=== PATIENT | male | born 1985 | race Caucasian/White ===

== ENCOUNTER 2023-04-30 15:00 | Outpatient (CLI) | payer OTHER, SELFPAY ==
--- NOTE | ~2023-04-30 | US_ITS ---
EXAMINATION: US scrotum doppler DATE: 04/30/2023 15:26 INDICATION: Right-sided epididymitis. TECHNIQUE: Grayscale and Doppler ultrasound images of the testes were obtained. COMPARISON: None. FINDINGS: The right testis measures 5.4 x 2.5 x 3.6 cm. The left testis measures 4.9 x 2.1 x 3.6 cm. There is normal vascular flow to both testes. There is a 10 mm hypoechoic mass in the tail of the rig ht epididymis. The right epididymis demonstrates normal vascular flow. The left epididymis demonstrat es a 3 mm cyst. There is a small left hydrocele. IMPRESSION: 1. 10 mm hypoechoic mass in the tail of the right epididymis. The differential diagnosis includes spe rm granuloma and less likely adenomatoid tumor. 2. Small left hydrocele. Reviewed, dictated and finalized at location E. IMPRESSION: 1. 10 mm hypoechoic mass in the tail of the right epididymis. The differential diagnosis includes sperm granuloma and less likely adenomatoid tumor. 2. Small left hydrocele.
== END 2023-04-30 15:01 ==
LOC: GOSHIMG 15:02
PROVIDERS: PCP Nurse Practitioner Adult Health; Visit Provider Nurse Practitioner Adult Health
DX: N45.1 Epididymitis (principal); N43.3 Hydrocele, unspecified
CPT/HCPCS: 76870; 93976

== ENCOUNTER 2023-05-29 12:56 | Outpatient (CLI) | payer OTHER, SELFPAY ==
--- NOTE | ~2023-05-29 | US_ITS ---
EXAMINATION: US scrotum doppler DATE: 05/29/2023 13:28 INDICATION: Epididymitis . TECHNIQUE: Grayscale and Doppler ultrasound images of the testes were obtained. COMPARISON: 04/30/2023. FINDINGS: The right testis measures 5.0 x 2.8 x 3.2 cm. The left testis measures 4.4 x 2.9 x 3.5 cm. No testicular mass. There is normal vascular flow to both testes. The right epididymis is normal with normal vascular flow. The left epididymis contains a 3 mm cyst and displays normal vascular flow. No varicoceles. Trace right and small left hydroceles. IMPRESSION: Small bilateral hydroceles. Otherwise normal scrotal ultrasound findings. The previously described ri ght epididymal tail mass is no longer identified. Reviewed, dictated and finalized at location K. IMPRESSION: Small bilateral hydroceles. Otherwise normal scrotal ultrasound findings. The p reviously described right epididymal tail mass is no longer identified.
== END 2023-05-29 12:57 ==
PROVIDERS: PCP Nurse Practitioner Adult Health; Visit Provider Nurse Practitioner Adult Health
DX: N45.1 Epididymitis (principal); N43.2 Other hydrocele
CPT/HCPCS: 76870; 93976

== ENCOUNTER 2023-12-11 09:26 | Outpatient (CLI) | payer OTHER, SELFPAY ==
[2023-12-11 19:45] LABS: Basophils Percent Auto 0.6 % (0.2-1.2); Eosinophils Absolute Auto 0.1 K/mm3 (0-0.3); Eosinophils Percent Auto 1.4 % (0-4.4); Hemoglobin 15.5 g/dL (14.0-18.0); Immature Granulocyte Absolute 0.01 K/mm3 (0.00-0.031); Immature Granulocyte Percent A 0.2 % (0-0.5); Lymphocytes Absolute Auto 1.61 K/mm3 (0.9-3.2); Lymphocytes Percent Auto 24.9 % (18.3-44.2); Mean Corpuscular Hemoglobin 31.8 pg (26-34); Mean Corpuscular Volume 96.3 fl (80-100); Mean Platelet Volume 11.1 fl (7.4-10.4); Monocytes Absolute Auto 0.6 K/mm3 (0.1-0.6); Neutrophils Absolute Auto 4.1 K/mm3 (1.3-6.7); Neutrophils Percent Auto 63.9 % (45.5-73.1); Platelet Count Result 189 k/mm3 (150-375); Red Blood Count 4.88 M/mm3 (4.6-6.20); Red Cell Distribution Width 12.9 % (11.5-14.5); White Blood Count 6.5 K/mm3 (4.5-10.0)
[2023-12-11 20:36] LABS: Alanine Aminotransferase 23 U/L (6-50); Albumin Level 4.5 g/dL (3.5-5.1); Alkaline Phosphatase 61 U/L (38-126); Anion Gap 3 mmol/L (8-16); Aspartate Amino Transferase 31 U/L (17-59); Bilirubin,Total 1.1 mg/dL (0.2-1.3); Blood Urea Nitrogen 11 mg/dL (9-20); Calcium 9.6 mg/dL (8.4-10.2); Carbon Dioxide 31 mmol/L (22-30); Chloride 105 mmol/L (98-107); Cholesterol 194 mg/dL (0-200); Estimated Glomerular Filt Rate > 60; Glucose 100 mg/dL (65-110); HDL Direct 37 mg/dL; Potassium 4.3 mmol/L (3.4-5.0); Sodium 139 mmol/L (137-145); Triglycerides 120 mg/dL (<150)
[2023-12-11 20:47] LABS: LDL Cholesterol Direct 121 mg/dL
== END 2023-12-11 09:27 | disposition home or self-care (01) ==
LOC: ANHGOSHLAB 09:28
PROVIDERS: PCP Nurse Practitioner Adult Health; Visit Provider Nurse Practitioner
DX: Z13.29 Encounter for screening for other suspected endocrine disorder (principal); Z13.220 Encounter for screening for lipoid disorders
CPT/HCPCS: 36415; 80053; 80061; 85025

== ENCOUNTER 2025-03-06 09:19 | Outpatient (CLI) | payer OTHER, SELFPAY ==
--- OUTSIDE RECORDS SUMMARY | 2025-03-06 09:45 | XMS_ITS | Continuity of Care Document ---
Author Name [facility] Organization [facility] Care Team Providers Care Environmental Lead Name Role Phone [facility] Unavailable Unavailable Problems Combined list of problems from Department of Defense and Veterans Affairs facilities. It does not include entries that were removed or entered in error. Problem Status Onset Date Problem Type Date of Resolution Comme nts Source visit for: follow-up exam Inactive Condition DoD PARONYCHIA OF THE FINGER Inactive Condition DoD PARONYCHIA RIGHT MIDDLE FINGER Inactive Condition DoD visit for: services physical Active Condition DoD Encounters Combined list of: 1) Encounters from Department of Veterans Affairs facilities going backup to the last 18 months, not all VA inpatient encounters are included; 2) Encounters from the Department of [facility] facilities going backup to 280 months. Location Location Details Encounter Type Encounter Number Reason For Visit Attending Provider ADM Date DC Date Status Disposition Source [facility] [place] [address]([facility]) OUTPATIENT [id number] doc CRISTAL HELLER 03/09 [facility] [place] [address]([facility]) [facility] OUTPATIENT [id number] 04/28 Released w/o Limitations [facility] OUTPATIENT [id number] 04/29 Released w/o Limitations [facility] OUTPATIENT [id number] 04/30 Released w/o Limitations [facility] OUTPATIENT [id number] 05/04 Released w/o Limitations Theater [facility]ilit y [facility] Outpatient Encounter [id number] 4 LINDSEY NASSAR 12/30 [facility] Procedures Combined list of: 1) Procedures from Department of Veterans Affairs facilities going back up to thelast 18 months, not all VA non-surgical procedures are included; 2) All procedures from the Department of Defense facilities. Procedure Procedure Type Code Date Perfomer Comments Sourc e Repair And Refitting Gla es (Not For Aphakia) Repair And Refitting Glasses (Not For Aphakia) 24534 03/09/[address] [facility] Determination Of Refractive State Determination Of Refractive State 04690 03/09/[address] [facility] Spectacles Services Fitting Monofocals (Not For Aphakia) Spectacles Services Fitting Monofocals (Not For Aphakia) 75329 03/09/[address] [facility] Social History Combined list of available smoking, tobacco, and other social history from Department of Defense and Veterans Affairs facilities. Social History Type Response Date Comment [facility] e This section is an empty social history section. DoD
--- OUTSIDE RECORDS SUMMARY | 2025-03-06 09:45 | XMS_ITS | Clinical Summary ---
Author Organization [facility] Address [address] [place] [address] Phone Care Team Providers Care Graduate Advisor Name Role Phone Hector Izquierdo MD Primary Care Provi marisela Allergies No known active allergies Medications No known medications Active Problems Problem Noted Date Diagnosed Date Routine general medical exam ination at a health care facility 04/19/2018 Assessment & Plan (04/19/2018 12:38 PM CDT): patient presents for annual exam ekg noted labs pending get copy of living will to pcp encourage follow gi for scheduled colonoscopy and egd if indicated encourage annual eye exam and dental minimum 2 times year encourage balance nutrition utilizing plateFrontbackod.gov and exercise 5 days a week. BMI 26.0-26.9,adult 03/26/2018 Assessment & Plan (04/19/2018 12:38 PM CDT): BMI Follow-up includes: nutrition counseling, exercise counseling and education provided. Other fatigue 03/26/2018 Assessment & Plan (03/26/2018 9:37 AM CDT): eat three meals a day same time each day well balance using plate method found at myDifferential Dynamics.gov stay well hydrated with water and walk 5 days a week See orders Inflamed seborrheic keratosis 04/06/2017 Assessment & Plan (04/19/2018 12:37 PM CDT): Reviewed all diagnostics surgery referrals laboratory Answer all questions Wear sun screen min 30 spf Wear hats and appropriate clothing Do not stay out more than rec time for exposure Routine skin checks Multiple benign melanocytic nevi 04/06/2017 Assessment & Plan (04/19/2018 12:37 PM CDT): Reviewed all diagnostics surgery referrals laboratory Answer all questions Wear sun screen min 30 spf Wear hats and appropriate clothing Do not stay out more than rec time for exposure Routine skin checks See ordres Resolved Problems Problem Noted Date Diagnosed Date Resolved Date Benign neoplasm of skin of trunk 05/11/2017 03/26/2018 Skin neoplasm 04/06/2017 03/26/2018 Immunizations Immunization Administration Dates Next Due Influenza, Unspecified 07/27/2017 Tdap 03/26/2018 Surgical History Surgery Date Site/Laterality Comments APPENDECTOMY WISDOM TOOTH EXTRACTION Family History Medical History Relation Name Comments Heart disease Father Heart disease; pacemaker Father Other Mother Alive and well; Relation Name Status Comments Father Alive Mother Alive Social History Tobacco Use Types Packs/Day Years Used Date Smoking Tobacco: Every Day Cigarettes 1 10 Smokeless Tobacco: Never Alcohol Use Standard Drinks/Week Comments Yes 0 (1 standard drink = 0.6 oz pur e alcohol) binge drink on weekends Personal Safety Answer Date Recorded Getting School Help Needed Not on file 01/02 Sex and Gender Information Value Date Recorded Sex Assigned at Not on file 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 Gender Identity Not on file Sexual Orientation Not on file 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 Not on file No t on file Obstetrics History Last Filed Vital Signs Vital Sign Reading Time Taken Comments Blood Pressure 110/80 03/26/2018 9:11 AM CDT Pulse 93 03/26/2018 9:11 AM CDT Temperature - - Respiratory Rate - - Oxygen Saturation 97% 03/26/2018 9:11 AM CDT Inhaled Oxygen Concentration - - Weight 89.8 kg (198 lb) 03/26/2018 9:11 AM CDT Height 182.9 cm (6') 03/26/2018 9:11 AM CDT Body Mass Index 26.85 03/26/2018 9:11 AM CDT Plan of Treatment Not on file Insurance [employer] ACC[employer] CHO[employer] Care Teams Graduate Advisor Relationship Specialty Start Date End Date Hector Izquierdo MD PCP - General 03/27/16
--- OUTSIDE RECORDS SUMMARY | 2025-03-06 09:45 | XMS_ITS | Referral Summary ---
Author Organization [facility] Address [address] [place] [address] Phone Care Team Providers Care Rapid Transit Operator Name Role Phone Hector Izquierdo MD Primary [...] 2 times year encourage balance nutrition utilizing plateSenseLogixod.gov and exercise 5 days a week. BMI 26.0-26.9,adult 03/26/2018 Assessment & Plan (04/19/2018 12:38 PM CDT): BMI Follow-up includes: nutrition counseling, exercise counseling and education provided. 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
--- OUTSIDE RECORDS SUMMARY | 2025-03-06 09:45 | XMS_ITS | Clinical Summary ---
Author Organization [facility] My Pick Box Address [address] [place] [address] Care Team Providers Care Interactive Media Marketing Strategist Name Role Phone Unavailable Primary Care Provider Unavailabl e Source Comments [facility],non-owned Affiliates and Associated Physician Practices is amultiple site organization consisting of ambulatory clinics and hospital sitesin [place], [place], [place] and [place]. This disclosure is being madepursuant to the Care Everywhere program and may not contain all information available regarding this patient. Last updated 18.[facility] My Pick Box Immunizations Immunization Administration Dates Next Due INFLUENZA VACCINE, TRIV. 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 Gender Identity Not on file Sexual Orientation Not on file Plan of Treatment Health Maintenance Due Date Last Done Comments HIV SCREENING 2002 HEPATITIS C SCREENING 08/19/2005 DTAP/TDAP/TD VACCINES (1 - Tdap) 2006 HEPATITIS B VACCINE (1 of 3 - 19+ 3-dose series) 2006 COVID-19 VACCINE ( - 2023-2 5 season) 2024 DEPRESSION SCREENING 10/19/2024 ZOSTER VACCINE (1 of 2) 2037 INFLUENZA VACCINE Completed 09/01/2024, 07/27/2017 HIB VACCINE Aged Out No longer eligi ble based on patient's age to complete this topic HPV VACCINE Aged Out No longer eligi ble based on patient's age to complete this topic MENINGOCOCCAL (Group B) VACCINE SHARED DECISION-MAKING Aged Out No longer eligible based on patient's age to complete this topic MENINGOCOCCAL GROUPS A/C/Y/W VACCINE Aged Out No longer eligible b ased on patient's age to complete this topic PNEUMOCOCCAL VACCINE Aged Out No long er eligible based on patient's age to complete this topic Insurance [facility]
[2025-03-06 20:12] LABS: Basophils Percent Auto 0.4 % (0.2-1.2); Eosinophils Percent Auto 0.5 % (0-4.4); Hematocrit 46.5 % (42.0-52.0); Hemoglobin 14.7 g/dL (14.0-18.0); Immature Granulocyte Absolute 0.02 K/mm3 (0.00-0.031); Immature Granulocyte Percent A 0.3 % (0-0.5); Lymphocytes Absolute Auto 1.11 K/mm3 (0.9-3.2); Mean Corpuscular HGB Conc 31.6 g/dl (32-36); Mean Corpuscular Hemoglobin 31.1 pg (26-34); Mean Corpuscular Volume 98.5 fl (80-100); Mean Platelet Volume 11.2 fl (7.4-10.4); Monocytes Absolute Auto 0.6 K/mm3 (0.1-0.6); Monocytes Percent Auto 7.8 % (2.6-8.5); Neutrophils Absolute Auto 5.6 K/mm3 (1.3-6.7); Platelet Count Result 205 k/mm3 (150-375); Red Blood Count 4.72 M/mm3 (4.6-6.20); Red Cell Distribution Width 12.6 % (11.5-14.5); White Blood Count 7.4 K/mm3 (4.5-10.0)
[2025-03-06 21:01] LABS: Alanine Aminotransferase 21 U/L (6-50); Albumin Level 4.7 g/dL (3.5-5.1); Alkaline Phosphatase 58 U/L (38-126); Anion Gap 10 mmol/L (4-12); Aspartate Amino Transferase 38 U/L (17-59); Bilirubin,Total 0.8 mg/dL (0.2-1.3); Blood Urea Nitrogen 7 mg/dL (9-20); Calcium 9.4 mg/dL (8.4-10.2); Carbon Dioxide 28 mmol/L (22-30); Chloride 103 mmol/L (98-107); Cholesterol 163 mg/dL (0-200); Estimated Glomerular Filt Rate > 60; Glucose 76 mg/dL (65-110); HDL Direct 48 mg/dL; Sodium 141 mmol/L (137-145); Triglycerides 73 mg/dL (<150)
[2025-03-06 21:12] LABS: LDL Cholesterol Direct 87 mg/dL
[2025-03-09 15:12] LABS: Apolipoprotein B 86 mg/dL
== END 2025-03-06 09:20 | disposition home or self-care (01) ==
LOC: ANHGOSHLAB 09:20
PROVIDERS: PCP Internal Medicine; Visit Provider Nurse Practitioner
DX: Z00.00 Encounter for general adult medical examination without abnormal findings (principal); Z13.220 Encounter for screening for lipoid disorders
CPT/HCPCS: 36415; 80053; 80061; 82172; 85025

== ENCOUNTER 2025-10-02 00:22 | Day surgery (SDC) | payer OTHER, SELFPAY ==
[2025-09-27 15:05] VITALS: BMI 24.4
--- NOTE | 2025-09-27 15:22 | PC.NURSE ---
[facility] has started construction of its new state of the art ER which will open Spring 2026. With this, we anticipate parking may be a challenge for some our surgical patients and families. Parking spaces are limited but are available for all Surgical, obstetrics, and ER patients sharing this lot. If you arrive and find you are having a hard time finding a parking space, please note that we understand the challenges, please drive around the hospital and park near Hospital Entrance 1. When you enter this entrance, you can ask a volunteer to direct or take you back to the surgical waiting area to check in. We appreciate everyone?s understanding of these expected challenges while we build for your future. Report to the Outpatient Waiting Room, entrance under the green pavilion located off [address], at time _11:00AM on date _10/02/25 . Planned Procedure Time: _13:00PM .? Time changes happen often and if your time is changed the preop area will call you the afternoon before. - You and your visitor will be asked to self-screen and do not enter if you have any COVID symptoms. Please call surgeon if you need to reschedule. - A mask is optional within the hospital at this time. Patients may have clear liquids (water, carbonated beverages, clear teas, apple juice) until 3 hours prior to surgery with a maximum of 20 ounces. - No food from midnight until time of surgery and no smoking, or chewing tobacco (or any form of nicotine). No chewing gum, candy or mints. Take only the following medications with a SIP of water on the morning of surgery: __NONE DO NOT STOP ANY OF YOUR OTHER PRESCRIPTION MEDICATIONS PRIOR TO SURGERY EXCEPT THE FOLLOWING Hold all vitamins and supplements for 3 days per anesthesiologist. Medications to discontinue per physician NONE Date to take last dose____NONE Please no make-up, nail kazakh, hairspray, perfume, deodorant, or body powder the day of surgery.? No jewelry (including any body piercings) or valuables the day of surgery, leave them at home.? Please take a shower or bath the night before, or the morning of, surgery with an antibacterial soap.? Wear comfortable, loose fitting clothing.? - Jewelry must be removed prior to entering the operating room.? Rings and piercings that are not removed may be cut off. - The hospital will not accept responsibility for valuables.? - Please leave all valuables, including medications, at home the day of surgery. If you are going home after surgery, a licensed coach tour driver must drive you home.? - NO public transportation without another adult if you receive anesthesia. - We recommend that an adult stay with you for 24 hours following discharge. - We also recommend that you do not drive, make important decision, drink alcoholic beverages, or take any drugs that were not prescribed by your health care provider for at least 24 hours after your discharge time. Follow any additional instructions given to you from your surgeon. Telephone instructions given to __MATT and asked if any additional questions and then verbalized understanding. Patient advised to call surgeon office or pre surgery nurse liaison [phone] if any additional questions.
[2025-10-02] VITALS (8 sets, daily range): BP systolic 107–134; BP diastolic 64–99; PULSE 69–82; RESP 12–18; TEMP 36.2–36.8; O2SAT 95–98; BMI 25.5
--- OUTSIDE RECORDS SUMMARY | 2025-10-02 00:25 | XMS_ITS | Clinical Summary ---
Author Organization [facility] Address [address] [place] [address] Phone Care Team Providers Care Hvac Journeyman Name Role Phone Hector Izquierdo MD Primary [...] 2 times year encourage balance nutrition utilizing plateMedliood.gov and exercise 5 days a week. BMI 26.0-26.9,adult 03/26/2018 Assessment & Plan (04/19/2018 12:38 PM CDT): BMI Follow-up includes: nutrition counseling, exercise counseling and education provided. 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
--- OUTSIDE RECORDS SUMMARY | 2025-10-02 00:25 | XMS_ITS | Clinical Summary ---
Author Organization [facility] Address [address] [place] [address] Care Team Providers Care Marine Electrician Helper Name Role Phone Unavailable Primary Care Provider Unavailabl e Source Comments [facility],non-owned Affiliates and Associated Physician Practices is amultiple site organization consisting of ambulatory clinics and hospital sitesin [place], [place], [place] and [place]. This disclosure is being madepursuant to the Care Everywhere program and may not contain all information available regarding this patient. Last updated 18.[facility] [employer] Immunizations Immunization Administration Dates Next Due INFLUENZA VACCINE, TRIV. 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
--- OUTSIDE RECORDS SUMMARY | 2025-10-02 00:25 | XMS_ITS | Clinical Summary ---
Author Organization [facility] Address [address] [address] Care Team Providers Care Road Machine Runner Name Role Phone Unavailable Primary Care Provider Unavailabl e Social History Tobacco Use Types Packs/Day Years Used Date Smoking Tobacco: Never Assessed Sex and Gender Information Value Date Recorded Sex Assigned at Not on file Legal Sex Male 1:55 PM EST Gender Identity Not on file Sexual Orientation Not on file Plan of Treatment Not on file Medical Devices Not on file Insurance [facility]
[2025-10-02] MEDS: LACTATED RINGERS 1,000 ML 30 ML IV CONT (10:55)
[2025-10-02] MEDS: KETOROLAC 15 MG/ML VIAL (*BKC) IV PUSH (11:23)
[2025-10-02] MEDS: ACETAMINOPHEN 500 MG TABLET 1000 MG PO (11:23)
--- NOTE | 2025-10-02 11:46 | P.PNAN_ITS ---
Anes - Initial Pre Proc Eval Procedure: Operation Date: 10/02/25 13:00 Proposed Procedures p Open Umbilical Hernia Repair with Mesh - Manfred Colvin DO Date/Time: 10/02/25 11:46 Surgeon: Manfred Colivn DO Pre Op Diagnosis: 1cm umbilical hernia Patient Data Age: 40 Gender: M Height: 1.83 m Weight: 81.6 kg Allergies Allergy/AdvReac Type Severity Reaction Status Date / Time No Known Drug Allergies Allergy Unknown Verified 09/27/25 15:17 Home Medications ?Medication ?Instructions ?Recorded ?Confirmed ?Type No Home Medications 09/10/22 09/27/25 H istory Patient hx anesthesia problems: none Family hx anesthesia problems: none Results Review: All pre-operative results and documents have been reviewed as part of the pre- operative evaluation. [facility] Surgical History Surgical History History of wisdom tooth extraction History of appendectomy H/O vasectomy Family History Family History Father Hypertension Heart disease Mother Cerebrovascular accident Social History Social History Smoking packs per day: 0.5 Smoking cigarettes per day: 10.0 Years smoked: 20 Smoking pack-years: 10.00 Smoking status: Current every day smoker Tobacco type: cigarettes Second hand tobacco smoke exposure: Yes Alcohol intake: current Alcohol use details: 1-2 beers weekly Substance use: current Substance use type: marijuana Last use: DAILY MARIJUANA Lack of Transportation: No Lack of Food: Never True Current Housing: I Have Housing Concerned About Future Housing: No Difficulty Paying Gas/Electric Bills: No Difficulty Paying for Meds: No Currently Unemployed: No Education: Bachelor's Degree Difficulty w/ Childcare or Family Care: No Living arrangements: with family Occupation/Education: occupation Additional occupation/education comments: works in [employer] Gender identity (if verbalized by the patient): Male Sexual Orientation (if Verbalized by the Patient): Straight or Heterosexual Spiritual care concerns: No Agree to blood products: Yes Anes - Eval Final PreProcedure Day of Procedure 10/02/25 11:46 Patient weight: normal Heart: regular rate and rhythm Lungs: clear to auscultation Airway: Mallampati scale class II Neurological: alert and oriented Last oral intake: >/= 8 hours ASA classification: II Emergent: no Anesthetic plan: proceed Anesthesia type and monitoring: general LMA and standard monitoring Results Review: All pre-operative results and documents have been reviewed as part of the pre- operative evaluation. Informed Consent: The patient's anesthetic plan and its attendant risks and benefits were discussed with the patient/family/POA. Questions were solicited and answers provided to the satisfaction of the patient/family/POA.
--- NOTE | 2025-10-02 11:48 | P.HP_ITS ---
H&P: HPI History of Present Illness Date/Time: 10/02/25 11:48 Chief Complaint: umbilical hernia Narrative: 40 yo man presents for umbilical hernia repair. He reports no changes since last seen in office. Review of Systems Review of Systems: All systems reviewed & are unremarkable except as noted in HPI and below Constitutional: Constitutional: Denies chills, Denies fever(s), Denies headache(s) and Denies weight loss Eyes: Eyes: Denies change in vision ENT: Denies dizziness, Denies headache(s), Denies neck mass and Denies throat swelling Cardiovascular: Cardiovascular: Denies chest pain, Denies lightheadedness and Denies dyspnea Respiratory: Respiratory: Denies cough, Denies dyspnea and Denies wheezing Gastrointestinal: Gastrointestinal: Denies abdominal pain, Denies change in bowel habits, Denies nausea and Denies vomiting Genitourinary: Genitourinary: Denies hematuria and Denies dysuria Musculoskeletal: Musculoskeletal: Reports as per HPI Integumentary/Breasts: Skin/Breast: Reports as per HPI Neurologic: Denies dizziness and Denies headache(s) Allergic/Immunologic: Allergic/Immunologic: Denies throat swelling and Denies wheezing PMFSH Surgical History Surgical History History of wisdom tooth extraction History of appendectomy H/O vasectomy Family History Family History Father Hypertension Heart disease Mother Cerebrovascular accident Social History Social History Smoking packs per day: 0.5 Smoking cigarettes per day: 10.0 Years smoked: 20 Smoking pack-years: 10.00 Smoking status: Current every day smoker Tobacco type: cigarettes Second hand tobacco smoke exposure: Yes Alcohol intake: current Alcohol use details: 1-2 beers weekly Substance use: current Substance use type: marijuana Last use: DAILY MARIJUANA Lack of Transportation: No Lack of Food: Never True Current Housing: I Have Housing Concerned About Future Housing: No Difficulty Paying Gas/Electric Bills: No Difficulty Paying for Meds: No Currently Unemployed: No Education: Bachelor's Degree Difficulty w/ Childcare or Family Care: No Living arrangements: with family Occupation/Education: occupation Additional occupation/education comments: works in [employer] Gender identity (if verbalized by the patient): Male Sexual Orientation (if Verbalized by the Patient): Straight or Heterosexual Spiritual care concerns: No Agree to blood products: Yes Meds Home Medications and Allergies Home Medications ?Medication ?Instructions ?Recorded ?Confirmed ?Type No Home Medications 09/10/22 09/27/25 H istory Allergies Allergy/AdvReac Type Severity Reaction Status Date / Time No Known Drug Allergies Allergy Unknown Verified 09/27/25 15:17 Exam Const: General: no acute distress and alert Orientation/consciousness: patient oriented x3 HENMT: Head: normocephalic and atraumatic Ears: hearing grossly normal bilaterally Face/Nose/Sinus: Normal nares present Mouth: Yes Normal oral and palatal mucosa present Eyes: Periorbital: periorbital findings normal Sclera: sclerae normal EOM: EOMs intact bilaterally Neck: Neck: normal visual inspection, no lymphadenopathy and trachea midline Chest: Chest palpation & inspection: normal inspection of the chest Resp: Effort & Inspection: normal respiratory effort Auscultation: clear to auscultation bilaterally Cardio: Jugular venous distension: no JVD Rate: regular rate Rhythm: regular rhythm Heart sounds: S1 normal heart sound present and S2 normal heart sound present Peripheral pulses: Peripheral pulses 2+ throughout GI: Inspection: normal to inspection GI Palp: Yes Soft to palpation, No Tenderness to palpation present (GI), No Guarding due to palpation present (GI), Yes Hernia present umbilical < 3 cm and No Rebound tenderness present Percussion: Yes normal to percussion Auscultation: normal bowel sounds : General: Yes no CVA tenderness Back/Spine/Pelvis: Back: no CVA tenderness Neuro: General: patient oriented x3, no focal motor deficits and CN's II-XI intact bilaterally Cognition (Neuro): normal cognition Speech: normal speech Motor exam (neuro): 5/5 motor strength present throughout Extrem: General: capillary refill normal and no clubbing, cyanosis or edema Assessment and Plan Assessment and plan (1) Umbilical hernia without mention of obstruction or gangrene: Qualifiers: Obstruction and gangrene presence: without obstruction or gangrene Qualified Code(s): K42.9 - Umbilical hernia without obstruction or gangrene Code(s): K42.9 - Umbilical hernia without obstruction or gangrene Status: Acute Assessment and Plan: I have recommended open umbilical hernia repair with possible mesh. I have discussed the procedure, risks, benefits, and alternatives with the patient. All questions answered. No changes since last seen in office.
--- NOTE | 2025-10-02 11:48 | WPDHPUPDATE1 ---
History and Physical Update Update Date/Time: 10/02/25 11:48 History and Physical has been reviewed, including an updated exam of the patient. There are NO changes in the patient's condition. Risks, benefits, and alternatives have been discussed and questions answered. Patient agrees to proceed with procedure.
[2025-10-02] MEDS: ceFAZolin 2 GM in SODIUM CHLORIDE 0.9% IV 50 ML 100 ML IVPB (12:00)
[2025-10-02] MEDS: BUPIVACAINE/EPINEPHRINE 0.5% 50 ML VIAL 30 ML INFILTRATE (12:24)
[2025-10-02] MEDS: KETOROLAC 30 MG/ML VIAL (*BKC) IV PUSH (12:38)
--- NOTE | 2025-10-02 12:42 | W.PM.PROC2 ---
Procedure Note - Detailed Date of Procedure 10/02/25 Pre-op Diagnosis 1cm umbilical hernia Post-op Diagnosis Same Procedure Performed Open 1 cm umbilical hernia repair with 6.[address] hernia patch Surgeon Manfred Colvin, DO Anesthesia General and Local (0.5% bupivacaine with epinephrine) Indications This is a 40-year-old man who presented with a bulge at his umbilicus that had become slightly larger with time. He had been experiencing some discomfort associated with the hernia over the past 4 months or so. He was found to have a reducible umbilical hernia on exam. Discussions were made with the patient about treatment options and decision was made to proceed with open umbilical hernia repair with mesh. Findings Open 1 cm umbilical hernia repair with mesh was performed. The patient was found to have a 1 cm umbilical hernia containing some preperitoneal fat. The hernia sac and preperitoneal fat was reduced. A 6.[address] hernia patch was used for repair. The fascia was closed using 0 Ethibond [id number] sutures. Description of Procedure Procedure as well as risks, benefits, and alternatives were discussed with the patient. Written consent was obtained and placed in chart prior to procedure. Patient was brought back to surgical suite. He was placed supine on operating table. He was then intubated by Anesthesia Department. His abdomen was prepped and draped in sterile fashion using chlorhexidine prep. 0.5% bupivacaine with epinephrine was infiltrated locally around the operative area. A 4 cm curvilinear incision was made just superior to the umbilicus using a 15 blade scalpel. Electrocautery was used for hemostasis and for dissection down through the subcutaneous fat. Hernia sac was encountered and this was carefully freed up from surrounding subcutaneous fat using electrocautery. The hernia sac was freed up all the way down to the level of the fascia. The hernia sac was then reduced back into the abdominal cavity. The umbilical stalk was then lifted off of the fascia with electrocautery. The hernia defect was then measured. This was measuring approximately 1 cm. The decision was made to use a 6.[address] hernia patch. The peritoneum was cleared under the fascia circumferentially around the hernia using blunt dissection and electrocautery. Once a wide enough pocket was created for the mesh, the mesh was then placed within this preperitoneal pocket and laid out flat centered on the hernia defect. The mesh appeared to be sitting in proper position. The mesh was then secured to the abdominal wall with the fascial closure using 0 Ethibond [id number] sutures in a vertical fashion. A total of 3 sutures were placed to approximate the fascial edges and secure the mesh. The repair was inspected and appeared secure. 0.5% bupivacaine with epinephrine was infiltrated around the fascia and subcutaneous space. The umbilical stalk was then reapproximated to the fascia using a 3 0 Vicryl simple interrupted suture. The deep dermis was reapproximated using 3 0 Vicryl simple interrupted sutures, and then the skin was approximated using 4 Monocryl running subcuticular suture. Exofin glue was then applied on top. The patient was then awakened from anesthesia, extubated, and transferred to recovery. Implants 6.[address] hernia patch Estimated Blood Loss 5 Complications No immediate complications Condition Stable Disposition Same day [facility] Billing Surgery - Charge Forward: Surgery Billing
--- NOTE | 2025-10-02 15:01 | SUR.PHASEII ---
1450: Patient meets criteria for discharge. He is dressed and waiting for ride.
== END 2025-10-02 15:25 | disposition home or self-care (01) ==
PROVIDERS: PCP Internal Medicine; Visit Provider Surgery
PROC: (CPT 49593; principal; 2025-10-02 13:00)
DX: K42.9 Umbilical hernia without obstruction or gangrene (principal); F17.210 Nicotine dependence, cigarettes, uncomplicated; F12.90 Cannabis use, unspecified, uncomplicated
CPT/HCPCS: 49593; J0690; A9270; C1781; J1100; J1885; J2003; J2250; J2405; J2704; J3010; J7120